=== PATIENT | male | born 1980 | race Caucasian/White ===

== ENCOUNTER 2018-09-03 13:03 | Emergency (ER) | payer OTHER ==
[2018-09-03 13:42] VITALS: RESP 20; O2SAT 99
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
[2018-09-03 15:21] VITALS: BP 136/91; PULSE 83; TEMP 98.4
== END 2018-09-03 15:26 | disposition home or self-care (01) ==
LOC: C.ER 13:03
DX: S39.012A Strain of muscle, fascia and tendon of lower back, initial encounter (principal); V49.40XA Driver injured in collision with unspecified motor vehicles in traffic accident, initial encounter